=== PATIENT | male | born 1960 | race Caucasian/White ===

== ENCOUNTER → 2019-05-10 | Outpatient (REF) | payer OTHER | LOC: M LAB REF 12:09 | PROVIDERS: ATTEND Nurse Practitioner Family | DX: R11.2 Nausea with vomiting, unspecified (principal) ==

== ENCOUNTER → 2019-06-25 | Outpatient (CLI) | payer OTHER ==
--- NOTE | 2019-06-25 19:08 | REP ---
Left foot series: Four views. History: Pain. Findings: Four views of the left foot show Achilles and plantar calcaneal spurring. Overall mineralization pattern is normal. There are degenerative changes at the IP joint of the great toe. No fracture is seen. Impression: Heel spurring. 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 Otherwise negative. Electronically Signed by Ten Breen MD 06/26/2019 05:37 A
== END ==
LOC: M WUC 14:18
PROVIDERS: ATTEND Registered Nurse
DX: M77.32 Calcaneal spur, left foot (principal); M19.072 Primary osteoarthritis, left ankle and foot; M79.672 Pain in left foot; M10.9 Gout, unspecified

== ENCOUNTER → 2020-08-21 | Outpatient (REF) | payer OTHER ==
[2020-08-21 18:22] LABS: URIC ACID 5.9 MG/DL (3.5-7.2)
== END ==
LOC: M LAB REF 16:25
PROVIDERS: ATTEND Registered Nurse
DX: R53.83 Other fatigue (principal); M10.9 Gout, unspecified

== ENCOUNTER → 2020-09-04 | Outpatient (CLI) | payer OTHER ==
[~2020-09-04] MED LIST: GASTROGRAFIN SOLUTION 30ML (Q9963) As Ordered ONE; ISOVUE-370 76% 100ML VIAL As Ordered ONE
--- NOTE | 2020-09-04 17:36 | REP ---
INDICATION: LEFT UPPER QUADRANT ABDOMINAL TENDERNESS. COMPARISON: None. TECHNIQUE: CT of the abdomen without IV contrast. This is of by CT of the abdomen and pelvis with IV contrast. Bowel contrast used on both phases of the study. FINDINGS: Patient complains of left upper quadrant abdominal tenderness and right lower quadrant abdominal pain. Visualized lung cherry are unremarkable. The hepatic parenchyma, gallbladder, pancreas and spleen are normal size and unremarkable on both phases of the study. The adrenals are unremarkable. There is a small hiatal hernia. The right kidney is unremarkable. There is focal renal cortical atrophy posteriorly in the upper pole of the left kidney compatible with renal infarct or focal renal cortical atrophy possibly from prior pyelonephritis. There is a small 1 cm Bosniak type 1 left renal upper pole cyst. There is a 6 mm left renal lower pole hypodensity laterally not clearly a cyst by CT. Consider ultrasound follow-up. There is no hydronephrosis. There are no renal calculi. There is no perinephric stranding. The abdominal aorta is unremarkable. There is no periaortic adenopathy or mass. There are multiple diverticula in the descending colon. There is no CT evidence of diverticulitis. There is a single diverticulum in the descending limb of the colonic hepatic flexure with no evidence of diverticulitis. The appendix is not identified. However, there is no pericecal inflammation or abscess. Pelvis: The bladder is unremarkable. There is no adenopathy or ascites. 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 There is degenerative disc disease in the lumbar spine, most advanced at L5-S1 IMPRESSION: Descending colon diverticulosis without diverticulitis. Single diverticulum in the colonic hepatic flexure descending limb without diverticulitis. No bowel distention or obstruction. No inflammatory changes in the mesentery. No ascites, adenopathy or mass. Bosniak type 1 left renal upper pole cyst. Small hypodensity in the left renal lower pole not clearly a cyst. Consider ultrasound follow-up. <Electronically signed by Remington Matthews > 09/04/20 1961
== END ==
LOC: M RAD 13:43
PROVIDERS: ATTEND Registered Nurse
DX: K57.92 Diverticulitis of intestine, part unspecified, without perforation or abscess without bleeding (principal); N28.1 Cyst of kidney, acquired
CPT/HCPCS: 74178; Q9963; Q9967

== ENCOUNTER → 2020-10-03 | Outpatient (CLI) | payer OTHER ==
--- NOTE | 2020-10-03 09:56 | REP ---
INDICATION: RT RENAL CYST F/U ABN IMAGING CT COMPARISON: CT dated 09/04/2020 TECHNIQUE: Real time palmer scale ultrasound examination using curved array transducer. FINDINGS: Bilateral kidneys are normal in contour, size, echogenicity, and reniform shape. No hydronephrosis, nephrolithiasis, cystic or renal mass lesion appreciated. Increased central sinus fat suggests age-related renal disease and correlation is recommended. Right kidney measures 11.3 x 6.2 x 6.9 cm. Left kidney measures 12.3 x 5.9 x 7.1 cm. The bladder is grossly unremarkable and bilateral ureteral jets are identified IMPRESSION: 1. Relatively normal renal ultrasound. No obvious left renal mass lesion and the simple cyst identified on recent CT is not visible by ultrasound. If necessary consider pre and postcontrast CT with delayed images to confirm benignity. <Electronically signed by Clifford Calderon > 10/03/20 [id number]
== END ==
LOC: M RAD 09:03
PROVIDERS: ATTEND Internal Medicine
DX: D41.01 Neoplasm of uncertain behavior of right kidney (principal)

== ENCOUNTER → 2021-08-03 | Outpatient (CLI) | payer OTHER ==
[~2021-08-03] MED LIST changes: +ALLO100T PO; +B-COCAP8 PO; +COQ-100C5 PO; -GASTROGRAFIN SOLUTION 30ML (Q9963) As Ordered ONE; +GLUC1CAP10 PO; -ISOVUE-370 76% 100ML VIAL As Ordered ONE; +OMEP40CA4 PO; +ROSU10TA6 PO; +VITMTA PO
== END ==
LOC: M LABSMTC 09:48
PROVIDERS: ATTEND Anesthesiology
DX: Z11.52 Encounter for screening for COVID-19 (principal); Z20.822 Contact with and (suspected) exposure to COVID-19

== ENCOUNTER → 2021-08-08 | Day surgery (SDC) | payer OTHER ==
[~2021-08-08] VITALS: Ht 188 cm; Wt 120.1 kg
[~2021-08-08] MED LIST changes: +LIDOCAINE 1% MDV 20ML VIAL As Ordered ONE; +NS 1,000 ML IV ONE; +propofoL 200 MG/20 ML VIAL As Ordered ONE
[2021-08-08 11:36] VITALS: BP 136/78
== END | disposition home or self-care (01) ==
LOC: M OPP 09:24
PROVIDERS: ATTEND Internal Medicine Gastroenterology
DX: Z12.11 Encounter for screening for malignant neoplasm of colon (principal); Z86.010 Personal history of colon polyps; K57.30 Diverticulosis of large intestine without perforation or abscess without bleeding; K64.0 First degree hemorrhoids; K31.A0 Gastric intestinal metaplasia, unspecified; K22.89 Other specified disease of esophagus; K44.9 Diaphragmatic hernia without obstruction or gangrene; R12 Heartburn; Z79.899 Other long term (current) drug therapy

== ENCOUNTER → 2022-09-19 | Outpatient (REF) | payer BC ==
[~2022-09-19] MED LIST changes: -LIDOCAINE 1% MDV 20ML VIAL As Ordered ONE; -NS 1,000 ML IV ONE; -propofoL 200 MG/20 ML VIAL As Ordered ONE
== END ==
LOC: M LAB REF 12:32
PROVIDERS: ATTEND Physician Assistant Medical
DX: R53.83 Other fatigue (principal); M10.9 Gout, unspecified; Z12.5 Encounter for screening for malignant neoplasm of prostate
CPT/HCPCS: 84550; 86618; G0103

== ENCOUNTER → 2023-03-21 | Outpatient (REF) | payer BC | LOC: M LAB REF 12:20 | PROVIDERS: ATTEND Physician Assistant Medical | DX: R21 Rash and other nonspecific skin eruption (principal) ==

== ENCOUNTER 2023-11-24 11:41 | Day surgery (SDC) | payer BC, MEDICARE ==
[~2023-11-24] VITALS: Ht 188 cm; Wt 120.2 kg
[~2023-11-24 11:41] MED LIST changes: +COQ150CH PO; +HYDR12CA PO; +LOSA25TA13 PO; +NS 1,000 ML IV ONE; +NYST1CRE15 EX; -ROSU10TA6 PO; +ROSU10TA61 PO; +THERTAB52 PO
[2023-11-24] MEDS ORDERED: LIDOCAINE 2% 100MG/5ML SDV (FOR ANES.) As Ordered ONE (11:43)
[2023-11-24] MEDS ORDERED: propofoL 200 MG/20 ML VIAL As Ordered ONE (11:43)
[2023-11-24 13:59] VITALS: BP 147/78; O2SAT 96
== END 2023-11-24 13:53 | disposition home or self-care (01) ==
LOC: M OPP 11:41
PROVIDERS: ATTEND Internal Medicine Gastroenterology
DX: K22.89 Other specified disease of esophagus (principal); K44.9 Diaphragmatic hernia without obstruction or gangrene; K22.70 Barrett's esophagus without dysplasia; Z79.02 Long term (current) use of antithrombotics/antiplatelets; Z79.899 Other long term (current) drug therapy

== ENCOUNTER → 2024-03-24 | Outpatient (REF) | payer MEDICARE ==
[~2024-03-24] MED LIST changes: -B-COCAP8 PO; -NS 1,000 ML IV ONE; +VITA1CAP55 PO
[2024-03-24 14:05] LABS: PTH INTACT 45.5 PG/ML (18.5-88.0)
[2024-03-24 14:48] LABS: HEPATITIS C VIRUS ABY INDEX 0.02 INDEX (<0.8)
[2024-03-26 08:03] LABS: LDL DIRECT 90 mg/dL (<100)
== END ==
LOC: M LAB REF 13:05
PROVIDERS: ATTEND Physician Assistant Medical
DX: R53.83 Other fatigue (principal); R61 Generalized hyperhidrosis; Z83.49 Family history of other endocrine, nutritional and metabolic diseases; E78.00 Pure hypercholesterolemia, unspecified

== ENCOUNTER → 2024-10-15 | Outpatient (CLI) | payer MEDICARE | LOC: M WUC 13:34 | PROVIDERS: ATTEND Physician Assistant | DX: M25.572 Pain in left ankle and joints of left foot (principal); R22.32 Localized swelling, mass and lump, left upper limb ==

== ENCOUNTER → 2025-03-29 | Outpatient (REF) | payer MEDICARE ==
[~2025-03-29] MED LIST changes: +HYDR12.510 PO; -HYDR12CA PO
== END ==
LOC: M LAB REF 13:30
PROVIDERS: ATTEND Physician Assistant Medical
DX: G25.81 Restless legs syndrome (principal); R53.83 Other fatigue